=== PATIENT | male | born 1990 | race Caucasian/White ===

== ENCOUNTER 2019-04-26 02:23 | Inpatient (IN) | payer SELFPAY ==
[~2019-04-26] VITALS: Ht 167.6 cm; Wt 99.4 kg
[2019-04-26 02:34] VITALS: Ht 167.6 cm; Wt 99.4 kg
[2019-04-26 04:34] LABS: BASOPHIL % 0.9 % (0-2); RED CELL DISTRIBUTION WIDTH 12.7 % (11.5-14.5)
[2019-04-26 04:35] LABS: PLATELET COUNT 422 x10^3mcL (130-400)
[2019-04-26 05:06] LABS: CALCIUM 8.8 mg/dL (8.5-10.1); CARBON DIOXIDE 27.8 mmol/L (21-32); CHLORIDE SERUM 104 mmol/L (98-107); CREATININE SERUM 0.9 mg/dL (0.7-1.3); GFR1 > 60 mL/min; GLUCOSE SERUM 91 mg/dL (74-106); POTASSIUM SERUM 3.9 mmol/L (3.5-5.1); SODIUM SERUM 142 mmol/L (136-145)
[2019-04-26 05:10] LABS: ALBUMIN 3.9 g/dL (3.4-5.0); ALKALINE PHOSPHATASE 66 U/L (46-116); ALT/SGPT 26 U/L (16-63); AST/SGOT 15 U/L (15-37); BILIRUBIN TOTAL 0.3 mg/dL (0.20-1.00); TOTAL PROTEIN, SERUM 8.2 g/dL (6.4-8.2)
[2019-04-26 06:19] VITALS: BP 114/80
[2019-04-26 07:06] LABS: CHOLESTEROL/HDL RATIO 2.7
[2019-04-26 08:36] VITALS: BP 113/69
[2019-04-26] MEDS ORDERED: ELIQUIS5 M1 PO (11:34)
[2019-04-26 13:53] VITALS: BP 113/65
== END 2019-04-26 14:27 | disposition home or self-care (01) | DRG 301 ==
LOC: ED 02:23 → DU 05:22
PROVIDERS: Emergency Medicine; ADMIT Internal Medicine
DX: I82.402 Acute embolism and thrombosis of unspecified deep veins of left lower extremity (principal); Z72.89 Other problems related to lifestyle
CPT/HCPCS: G0378; J1650; Q0092